=== PATIENT | female | born 2000 | race African-American/Black ===

== ENCOUNTER 2019-07-06 23:06 | Emergency (ER) | payer OTHER ==
[2019-07-06 23:17] VITALS: BP 112/95
[2019-07-07] MEDS ORDERED: NORMAL SALINE 1000 ML 1,000 ML IV ONE (01:12)
[2019-07-07] MEDS ORDERED: ONDANSETRON HCL INJ/PF 4 MG/2 ML SDV IV ONE (01:13)
[2019-07-07] MEDS ORDERED: BUTALB/ACETAMINOPHEN/CAFFEINE 1 TAB EACH PO ONE (01:13)
[2019-07-07 02:16] LABS: ABSOLUTE LYMPHOCYTES (AUTO) 1.9 10^3/uL (0.5-4.7); ABSOLUTE MONOCYTES (AUTO) 0.8 10^3/uL (0.1-1.4); ABSOLUTE NEUT (AUTO) 7.6 10^3/uL (1.7-8.2); BASOPHILS % (AUTO) 0.1 % (0-2); EOSINOPHILS % (AUTO) 0.1 % (0-6); HEMATOCRIT 37.9 % (36.0-47.0); HEMOGLOBIN 12.4 g/dL (12.0-15.5); LYMPHOCYTES % (AUTO) 18.7 % (13-45); MEAN CORPUSCULAR HEMOGLOBIN 26.8 pg (27.0-33.4); MEAN CORPUSCULAR HGB CONC 32.6 g/dL (32.0-36.0); MEAN CORPUSCULAR VOLUME 82 fl (80-97); MONOCYTES % (AUTO) 7.8 % (3-13); PLATELET COUNT 199 10^3/uL (150-450); RED BLOOD COUNT 4.61 10^6/uL (3.72-5.28); RED CELL DISTRIBUTION WIDTH 15.6 % (11.5-14.0); SEGMENTED NEUTROPHILS % (AUTO) 73.3 % (42-78); TOTAL CELLS COUNTED % (AUTO) 100 %; WHITE BLOOD COUNT 10.4 10^3/uL (4.0-10.5)
[2019-07-07 02:37] LABS: ALBUMIN 4.3 g/dL (3.5-5.0); ALKALINE PHOSPHATASE 68 U/L (38-126); ANION GAP 9 (5-19); ASPARTATE AMINO TRANSFERASE 39 U/L (14-36); BILIRUBIN,DIRECT 0.1 mg/dL (0.0-0.4); BILIRUBIN,TOTAL 2.5 mg/dL (0.2-1.3); BLOOD UREA NITROGEN 9 mg/dL (7-20); CALCIUM 9.5 mg/dL (8.4-10.2); CARBON DIOXIDE 27 mmol/L (22-30); CHLORIDE 101 mmol/L (98-107); GLUCOSE 88 mg/dL (75-110); POTASSIUM 3.9 mmol/L (3.6-5.0); TOTAL PROTEIN 7.6 g/dL (6.3-8.2)
[2019-07-07 02:57] LABS: ACETAMINOPHEN < 10 ug/mL (10-30); SALICYLATE < 1.0 mg/dL (2.0-20.0)
--- NOTE | 2019-07-07 03:27 | RADIOLOGY REPORT (SQ) ---
EXAM DESCRIPTION: XR ABDOMEN SUPINE AND ERECT WITH CHEST (ABD ACUTE SERIES) COMPLETED DATE/TME: 07/07/2019 01:12 CLINICAL HISTORY: 18 years, Female, constipation COMPARISON: None. NUMBER OF VIEWS: Three TECHNIQUE: AP view of the chest with supine and upright images of the abdomen LIMITATIONS: None. FINDINGS: The lungs are clear. The heart is normal in size. There is no pneumothorax or pleural effusion. There is no intraperitoneal free air. There are dilated loops of small bowel along the right side of the abdomen, which measure up to 3.5 cm in diameter. There is a moderate amount stool within the colon. The bones are unremarkable. IMPRESSION: Dilated loops of small bowel along the right side of the abdomen, which may be due to an ileus or obstruction. copyright 2010 [employer]- All Rights Reserved
[2019-07-07 03:44] LABS: URINE AMPHETAMINES SCREEN NEGATIVE; URINE BARBITURATES SCREEN NEGATIVE; URINE BENZODIAZEPINES SCREEN NEGATIVE; URINE COCAINE SCREEN NEGATIVE; URINE MARIJUANA (THC) SCREEN NEGATIVE; URINE METHADONE SCREEN NEGATIVE; URINE PHENCYCLIDINE SCREEN NEGATIVE
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
--- NOTE | 2019-07-07 05:46 | RADIOLOGY REPORT (SQ) ---
EXAM DESCRIPTION: CT ABDOMEN PELVIS WITH IV CONTRAST COMPLETED DATE/TME: 07/07/2019 04:19 CLINICAL HISTORY: 18 years Female, dilated bowel loops ? SBO Comparison: None. Technique: IV contrast. Coronal and sagittal reformat. This exam was performed according to our departmental dose-optimization program, which includes automated exposure control, adjustment of the mA and/or kV according to patient size and/or use of iterative reconstruction technique. [facility]: Dose Right [facility]: CareDose [facility]: Dose Right [facility]: Teradose 4D [facility]: Float: [place] LIMITATIONS: Arm position. Findings: Stool retention. Small free pelvic cul-de-sac fluid. Normal appendix. No gross evidence of gallbladder inflammation, hepatobiliary obstruction, or portal vein defect. No bowel obstruction. No hydronephrosis or hydroureter. No renal/ureteral stone. No evidence of abdominal aortic aneurysm. No gross evidence of thecal sac/cord or nerve root compression. Inferior thorax, liver, gallbladder, pancreas, spleen, adrenals, renal system, gastrointestinal tract, pelvic organs, lymphatics, vasculature, and musculoskeleton appear otherwise unremarkable. IMPRESSION: No acute findings.
== END 2019-07-07 07:15 | disposition home or self-care (01) ==
LOC: ER 23:06
DX: R51 Headache (principal); K59.00 Constipation, unspecified; R10.9 Unspecified abdominal pain; R11.0 Nausea; F17.200 Nicotine dependence, unspecified, uncomplicated; Z72.89 Other problems related to lifestyle
CPT/HCPCS: 99284; 96361; 96374; 36415; 84702; 80307 ×3; 85025; 80053; 74022; 74177; J3490; J2405; J7030

== ENCOUNTER 2019-07-31 14:43 | Emergency (ER) | payer OTHER ==
[2019-07-31] MEDS ORDERED: IPRATROPIUM/ALBUTEROL 0.5-2.5 MG/3 ML AMPUL NEB ONE (15:15)
[2019-07-31] MEDS ORDERED: FAMOTIDINE 20 MG TABLET PO ONE (15:15)
--- NOTE | 2019-07-31 15:18 | ER Document Report ---
ED General - General Stated Complaint: CHEST PAIN Time Seen by Provider: 07/31/19 14:53 Notes: Patient is a 19-year-old female that presents to the emergency department for chief complaint of chest discomfort and nausea and vomiting after intentional overdose. Patient states last night she drank 4 vodka drinks and took 8 800 mg ibuprofen and attempt to commit suicide. This occurred last night. And today when she woke up she was having nausea and did vomit once and somewhat later she was having tightness and pain in her chest that she describes as an aching sen sation she does have a history of asthma, and she states that she is had some degree of a flare recently as well. She also notes that she believes that she had urinated blood but she is not entirely sure, she states she did finish her menstrual cycle recently. She denies having any blood in her emesis, denies any blood in the stool. Infection states she is been constipated. She currently rates her pain as a 3 out of 10 describes as an aching sensation as noted above. Denies any fevers, chills, night sweats, headaches or lightheadedness. At this time the patient does deny any suicidal ideation, she states that she was having arguments with family members and things are building up for the last few weeks and that so she decided to attempt to harm herself last night, she is never done anything like this before. She is not currently taking any antidepressants or antianxiety medications. Past Medical History: Asthma Past Surgical History: Denies any recent or pertinent surgical history Social History: Admits to smoking cigarettes, and occasional alcohol use, denies illicit drug use. Family History: Reviewed and noncontributory for presenting illness Allergies: Reviewed, see documented allergy list. REVIEW OF SYSTEMS: Other than noted above, the 12 point review of systems was reviewed with the patient and were negative, all pertinent findings are included in the HPI. PHYSICAL EXAMINATION: Vital signs reviewed, nursing noted reviewed. GENERAL: Well-appearing, well-nourished and in no acute distress. HEAD: Atraumatic, normocephalic. EYES: Eyes appear normal, extraocular movements intact, sclera anicteric, conjunctiva are normal. ENT: nares patent, oropharynx clear without exudates. Moist mucous membranes. NECK: Normal range of motion, supple without lymphadenopathy LUNGS: Breath sounds clear to auscultation bilaterally and equal. No wheezes rales or rhonchi. No chest wall tenderness. HEART: Regular rate and rhythm without murmurs ABDOMEN: Soft, nontender, normoactive bowel sounds. No rebound, guarding, or rigidity. No masses appreciated. EXTREMITIES: Nontender, good range of motion, no pitting or edema. NEUROLOGICAL: No focal neurological deficits. Moves all extremities spontaneously Motor and sensory grossly intact on exam. PSYCH: Flat affect, but does answer questions appropriately. SKIN: Warm, Dry, normal turgor, no rashes or lesions noted on exposed skin TRAVEL OUTSIDE OF THE [place] IN LAST 30 DAYS: No - Related Data Allergies/Adverse Reactions: sulfamethoxazole [From Bactrim] Allergy (Verified 07/07/19 00:08) trimethoprim [From Bactrim] Allergy (Verified 07/07/19 00:08) Past Medical History - Social History Smoking Status: Current Every Day Smoker Family History: Reviewed & Not Pertinent Physical Exam - Vital signs Vitals: Temp Pulse Resp BP Pulse Ox 98.7 F 85 16 113/60 100 07/31/19 15:52 07/31/19 15:52 07/31/19 15:52 07/31/19 15:52 07/31/19 15:52 Course - Re-evaluation Re-evalutation: Patient seen and examined, vital signs reviewed. Medical screening testing was ordered including bloodwork, EKG, and toxicology. Results of testing were reviewed. Testing demonstrated UA that was consistent with a urinary tract infection, patient started on Keflex, she had mild hypokalemia, will monitor patient, her EKG was unremarkable. Patient has been stable from a hemodynamic standpoint. At this point I feel that the patient is medically cleared and can be further evaluated from a psychiatric standpoint for final disposition from the emergency department. Patient updated on plan of care. We will continue Keflex for UTI while patient is in the ED, I believe she should stay for psychiatric evaluation given her suicide attempt yesterday, patient was agreeable to this plan of care. Laboratory 07/31/19 07/31/19 07/31/19 15:20 15:20 15:40 WBC Cancelled RBC Cancelled Hgb Cancelled Hct Cancelled MCV Cancelled MCH Cancelled MCHC Cancelled RDW Cancelled Plt Count Cancelled Lymph % (Auto) Cancelled [place] % (Auto) Cancelled Eos % (Auto) Cancelled Baso % (Auto) Cancelled Absolute Neuts (auto) Cancelled Absolute Lymphs (auto) Cancelled Absolute Monos (auto) Cancelled Absolute Eos (auto) Cancelled Absolute Basos (auto) Cancelled Seg Neutrophils % Cancelled Platelet Estimate Cancelled Sodium Potassium Chloride Carbon Dioxide Anion Gap BUN Creatinine Est GFR ( Amer) Est GFR (MDRD) Non-Af Glucose Calcium Total Bilirubin Direct Bilirubin Neonat Total Bilirubin Neonat Direct Bilirubin Neonat Indirect Bili AST ALT Alkaline Phosphatase Total Protein Albumin Serum HCG, Qual Urine Color YELLOW Urine Appearance CLOUDY Urine pH 6.0 Ur Specific Concrete 1.008 Urine Protein 30 H Urine Glucose (UA) NEGATIVE Urine Ketones NEGATIVE Urine Blood LARGE H Urine Nitrite NEGATIVE Urine Bilirubin NEGATIVE Urine Urobilinogen NEGATIVE Ur Leukocyte Esterase MODERATE H Urine WBC (Auto) 62 Urine RBC (Auto) >182 Urine Bacteria (Auto) 2+ Squamous Epi Cells Auto 10 Urine Mucus (Auto) RARE Urine Ascorbic Acid NEGATIVE Salicylates Urine Opiates Screen NEGATIVE Urine Methadone Screen NEGATIVE Acetaminophen Ur Barbiturates Screen NEGATIVE Ur Phencyclidine Scrn NEGATIVE Ur Amphetamines Screen NEGATIVE U Benzodiazepines Scrn NEGATIVE Urine Cocaine Screen NEGATIVE U Marijuana (THC) Screen NEGATIVE Serum Alcohol Slides for Path Review Cancelled 07/31/19 07/31/19 07/31/19 15:40 15:40 16:32 WBC 6.8 RBC 4.60 Hgb 12.4 Hct 37.6 MCV 82 MCH 26.9 L MCHC 32.9 RDW 15.4 H Plt Count 228 Lymph % (Auto) 32.9 [place] % (Auto) 9.5 Eos % (Auto) 0.6 Baso % (Auto) 0.1 Absolute Neuts (auto) 3.9 Absolute Lymphs (auto) 2.2 Absolute Monos (auto) 0.6 Absolute Eos (auto) 0.0 Absolute Basos (auto) 0.0 Seg Neutrophils % 56.9 Platelet Estimate Sodium 139.3 Potassium 3.4 L Chloride 107 Carbon Dioxide 24 Anion Gap 8 BUN 6 L Creatinine 0.85 Est GFR ( Amer) > 60 Est GFR (MDRD) Non-Af > 60 Glucose 109 Calcium 9.1 Total Bilirubin 1.5 H Direct Bilirubin 0.0 Neonat Total Bilirubin Not Reportable Neonat Direct Bilirubin Not Reportable Neonat Indirect Bili Not Reportable AST 19 ALT 22 Alkaline Phosphatase 66 Total Protein 7.4 Albumin 4.1 Serum HCG, Qual NEGATIVE Urine Color Urine Appearance Urine pH Ur Specific Concrete Urine Protein Urine Glucose (UA) Urine Ketones Urine Blood Urine Nitrite Urine Bilirubin Urine Urobilinogen Ur Leukocyte Esterase Urine WBC (Auto) Urine RBC (Auto) Urine Bacteria (Auto) Squamous Epi Cells Auto Urine Mucus (Auto) Urine Ascorbic Acid Salicylates < 1.0 L Urine Opiates Screen Urine Methadone Screen Acetaminophen < 10 L Ur Barbiturates Screen Ur Phencyclidine Scrn Ur Amphetamines Screen U Benzodiazepines Scrn Urine Cocaine Screen U Marijuana (THC) Screen Serum Alcohol < 10 Slides for Path Review Chest X-Ray 07/31/19 14:53 IMPRESSION: No acute cardiopulmonary process. - Vital Signs Vital signs: Temp Pulse Resp BP Pulse Ox 98.7 F 85 16 113/60 100 07/31/19 15:52 07/31/19 15:52 07/31/19 15:52 07/31/19 15:52 07/31/19 15:52 - Laboratory Result Diagrams: 07/31/19 16:32 07/31/19 15:40 Laboratory results interpreted by me: 07/31/19 07/31/19 07/31/19 15:20 15:40 16:32 MCH 26.9 L RDW 15.4 H Potassium 3.4 L BUN 6 L Total Bilirubin 1.5 H Urine Protein 30 H Urine Blood LARGE H Ur Leukocyte Esterase MODERATE H Salicylates < 1.0 L Acetaminophen < 10 L - EKG Interpretation by Me Additional EKG results interpreted by me: EKG demonstrates sinus rhythm with a ventricular rate of 79 bpm, normal axis, normal intervals, no evidence of acute ischemia in this EKG, no prior for comparison. Discharge - Discharge Clinical Impression: Suicide attempt UTI (urinary tract infection) Qualifiers: Urinary tract infection type: site unspecified Hematuria presence: with hematuria Qualified Code(s): N39.0 - Urinary tract infection, site not specified; R31.9 - Hematuria, unspecified Condition: Stable Disposition: PSYCH HOSP/UNIT
[2019-07-31 16:19] LABS: APPEARANCE,URINE CLOUDY; BILIRUBIN,URINE NEGATIVE (NEGATIVE); COLOR,URINE YELLOW; GLUCOSE, URINE NEGATIVE (NEGATIVE); KETONES,URINE NEGATIVE (NEGATIVE); LEUKOCYTE ESTERASE,URINE MODERATE (NEGATIVE); NITRITE,URINE NEGATIVE (NEGATIVE); PROTEIN,URINE 30 mg/dL (NEGATIVE); URINE SPECIFIC GRAVITY 1.008; UROBILINOGEN,URINE NEGATIVE mg/dL (<2.0)
[2019-07-31 16:19] LABS: ALBUMIN 4.1 g/dL (3.5-5.0); ALKALINE PHOSPHATASE 66 U/L (38-126); ANION GAP 8 (5-19); ASPARTATE AMINO TRANSFERASE 19 U/L (14-36); BILIRUBIN,TOTAL 1.5 mg/dL (0.2-1.3); BLOOD UREA NITROGEN 6 mg/dL (7-20); CALCIUM 9.1 mg/dL (8.4-10.2); CARBON DIOXIDE 24 mmol/L (22-30); CHLORIDE 107 mmol/L (98-107); GLUCOSE 109 mg/dL (75-110); POTASSIUM 3.4 mmol/L (3.6-5.0); TOTAL PROTEIN 7.4 g/dL (6.3-8.2)
[2019-07-31 16:20] LABS: ACETAMINOPHEN < 10 ug/mL (10-30); ALCOHOL < 10 mg/dL (NONE DETECTED); SALICYLATE < 1.0 mg/dL (2.0-20.0)
[2019-07-31] MEDS ORDERED: CEPHALEXIN 500 MG CAPSULE PO ONE (16:22)
[2019-07-31 16:23] LABS: URINE AMPHETAMINES SCREEN NEGATIVE; URINE BARBITURATES SCREEN NEGATIVE; URINE BENZODIAZEPINES SCREEN NEGATIVE; URINE COCAINE SCREEN NEGATIVE; URINE MARIJUANA (THC) SCREEN NEGATIVE; URINE METHADONE SCREEN NEGATIVE; URINE PHENCYCLIDINE SCREEN NEGATIVE
[2019-07-31 17:02] LABS: ABSOLUTE LYMPHOCYTES (AUTO) 2.2 10^3/uL (0.5-4.7); ABSOLUTE MONOCYTES (AUTO) 0.6 10^3/uL (0.1-1.4); ABSOLUTE NEUT (AUTO) 3.9 10^3/uL (1.7-8.2); BASOPHILS % (AUTO) 0.1 % (0-2); EOSINOPHILS % (AUTO) 0.6 % (0-6); HEMATOCRIT 37.6 % (36.0-47.0); HEMOGLOBIN 12.4 g/dL (12.0-15.5); LYMPHOCYTES % (AUTO) 32.9 % (13-45); MEAN CORPUSCULAR HEMOGLOBIN 26.9 pg (27.0-33.4); MEAN CORPUSCULAR HGB CONC 32.9 g/dL (32.0-36.0); MEAN CORPUSCULAR VOLUME 82 fl (80-97); MONOCYTES % (AUTO) 9.5 % (3-13); PLATELET COUNT 228 10^3/uL (150-450); RED CELL DISTRIBUTION WIDTH 15.4 % (11.5-14.0); SEGMENTED NEUTROPHILS % (AUTO) 56.9 % (42-78); TOTAL CELLS COUNTED % (AUTO) 100 %; WHITE BLOOD COUNT 6.8 10^3/uL (4.0-10.5)
--- NOTE | 2019-07-31 17:33 | RADIOLOGY REPORT (SQ) ---
EXAM DESCRIPTION: CHEST SINGLE VIEW COMPLETED DATE/TIME: 07/31/2019 3:20 pm REASON FOR STUDY: chest pain COMPARISON: None. EXAM PARAMETERS: NUMBER OF VIEWS: One view. TECHNIQUE: Single frontal radiographic view of the chest acquired. RADIATION DOSE: NA LIMITATIONS: None. FINDINGS: LUNGS AND PLEURA: No consolidation, pleural effusion or pneumothorax. MEDIASTINUM AND HILAR STRUCTURES: No mediastinal or hilar contour abnormality. HEART AND VASCULAR STRUCTURES: The cardiac silhouette and pulmonary vasculature are within normal loera its. BONES: No acute findings. HARDWARE: None in the chest. OTHER: No other finding. IMPRESSION: No acute cardiopulmonary process. TECHNICAL DOCUMENTATION: JOB ID: [id number] [employer]- All Rights Reserved Reading location - IP/workstation name: [email or web address]
--- NOTE | 2019-07-31 20:18 | EKG REPORT ---
SEVERITY:- NORMAL ECG - SINUS RHYTHM : Confirmed by: Juliette Macedo MD 31-Jul-2019 20:17:06
--- NOTE | 2019-08-01 08:31 | PSYCHOLOGICAL NOTE ---
Psych Note - Psych Note Date seen by psych provider: 08/01/19 Time seen by psych provider: 07:30 Psych Note: Reason for consult: SI Chart review conducted at 06:30. Patient appeared to be resting comfortably when clinician entered room. Patient stated she became overwhelmed with a recent argument with family and friends. Patient stated she immediately regretted her actions. Patient denies suicidal and homicidal ideations. Patient denies a lexii e to . Patient reports being depressed for a while. Patient denies prior mental health services. Patient reports no medications. Patient declines medication, however agrees to seek mental health services to address depressive symptoms. Patient reports alcohol use as a coping mechanism. Patient denies alcohol use is severe. Patient is alert and oriented to person, place, time and circumstance. Mood is euthymic with congruent affect as evidenced by smiling, laughing and engaging with clinician. Patient denies suicidal and homicidal ideation. Delusions are absent and behavior is congruent with an intact- reality based presentation (i.e. organized and linear thought processes). Patient denies auditory and visual hallucinations. There is no observed behavior that suggests patient is responding to internal stimuli. Eye contact is good. Conversational speech is within normal rate, tone, and prosody. Intellectual ability appears to be within average range. Attention and concentration are good. Insight, judgment, and impulse control are fair. DSM Diagnosis: Depression Medication recommendations per [facility] contracted psychiatrist Dr. Zach RYDER is as follows: NONE Impression/Plan: Patient is cleared from acute psychiatric services. Patient does not meet IVC criteria per [place] GS 122C. At this time, patient is demonstrating insight and judgment into her current situation and is able to thoughtfully and purposefully participate in plan of care development. Patient denies suicidal and homicidal ideation. Patient denies auditory and visual hallucinations. Patient identified support system. Patient was provided with appointment on 09/23/19 with [facility]. Patient was also provided with the contact information for mobile crisis' local office. Rozina ent was also provided with community outpatient mental health referral list. Dr. Lemus was consulted on the care and management of this patient; attending physician is in agreement with recommendations and disposition.
[2019-08-01] MEDS ORDERED: CEPHALEXIN 500 MG CAPSULE PO SCH (10:00)
--- NOTE | 2019-08-01 12:01 | ER Document Report ---
Doctor's Note Notes: 08/01/19 11:00 PHYSICAL EXAMINATION: GENERAL: Well-appearing and in no acute distress. HEAD: Atraumatic, normocephalic. EYES: sclera anicteric, conjunctiva are normal. ENT: nares patent. Moist mucous membranes. NECK: Normal range of motion, supple without lymphadenopathy LUNGS: CTAB and equal. No wheezes rales or rhonchi. HEART: Regular rate and rhythm without murmurs ABDOMEN: Soft, nontender, normal bowel sounds, no guarding. EXTREMITIES: Normal range of motion, no pitting edema. No cyanosis. BACK: No CVA tenderness NEUROLOGICAL: Cranial nerves grossly intact. Normal speech. Normal gait. PSYCH: Normal mood, normal affect. SKIN: Warm, Dry, normal turgor, no rashes or lesions noted Patient presently denies any suicidal or homicidal ideation. Reviewed nursing note, mental health team note, diagnostic evaluation and vital signs. Patient medically stable for discharge or transfer pending mental health consultation. 08/01/19 11:59 Doris with mental health team reports that patient is cleared from a psychiatric standpoint and pending discharge at this time. To discuss plan of care with Dr. Evans who is agreeable with this plan at this time.
[2019-08-01 12:30] VITALS: BP 99/65
== END 2019-08-01 12:32 | disposition home or self-care (01) ==
LOC: ER 14:43
DX: N39.0 Urinary tract infection, site not specified (principal); R31.9 Hematuria, unspecified; T39.312A Poisoning by propionic acid derivatives, intentional self-harm, initial encounter; X58.XXXA Exposure to other specified factors, initial encounter; F17.210 Nicotine dependence, cigarettes, uncomplicated; R07.9 Chest pain, unspecified; R11.2 Nausea with vomiting, unspecified; Z88.3 Allergy status to other anti-infective agents
CPT/HCPCS: 93005; 94640; 99285; 36415; 87086; 80307 ×4; 84703; 85025; 80053; 81001; 71045; 93010; J7620